=== PATIENT | female | born 1965 | race Two or more races ===

== ENCOUNTER 2022-11-28 18:30 | Emergency (ER) | payer OTHER ==
[~2022-11-28] VITALS: Ht 157.5 cm; Wt 45.4 kg
== END 2022-11-28 21:28 | disposition home or self-care (01) ==
LOC: ER 18:30
DX: S90.871A Other superficial bite of right foot, initial encounter (principal); W55.01XA Bitten by cat, initial encounter; Y93.9 Activity, unspecified; Y92.018 Other place in single-family (private) house as the place of occurrence of the external cause; Y99.9 Unspecified external cause status; Z88.0 Allergy status to penicillin; Z91.018 Allergy to other foods